=== PATIENT | female | born 1960 | race Caucasian/White ===

== ENCOUNTER 2019-03-12 09:10 | Day surgery (SDC) | payer BC ==
[2019-03-11 14:33] LABS: BASOPHILS % (AUTO) 0.3 % (0.0-5.0); EOSINOPHILS % (AUTO) 0.1 % (0.0-8.0); HEMATOCRIT 34.8 % (36-48); LYMPHOCYTES % (AUTO) 10.7 % (21.0-51.0); MEAN CORPUSCULAR HGB CONC 34.3 g/dL (32.0-36.0); MEAN CORPUSCULAR VOLUME 93.3 fL (79-99); MONOCYTES % (AUTO) 9.5 % (3.0-13.0); NEUTROPHILS % (AUTO) 79.4 % (40.0-77.0); RED BLOOD CELL COUNT(AUTO) 3.73 MIL/uL (4.00-5.50); RED CELL DISTRIBUTION WIDTH 12.4 % (11.0-15.5); WHITE BLOOD COUNT (AUTO) 10.6 K/uL (4.8-10.8)
[2019-03-11 14:35] VITALS: BP 148/74
[2019-03-11 14:45] LABS: CREATININE 0.9 mg/dL (0.5-1.5); POTASSIUM 4.7 mmol/L (3.5-5.1)
[2019-03-11 14:48] LABS: PROTHROMBIN TIME 10.5 SEC (9.6-11.6)
[2019-03-11 14:53] LABS: APPEARANCE,URINE Clear (CLEAR); BILIRUBIN,URINE Negative (NEGATIVE); COLOR,URINE Yellow (YELLOW); GLUCOSE, URINE (UA) Negative (NEGATIVE); KETONES,URINE Trace mg/dL (NEGATIVE); LEUKOCYTE ESTERASE ,URINE Negative (NEGATIVE); NITRATE,URINE Negative (NEGATIVE); OCCULT BLOOD,URINE Negative (NEGATIVE); PH,URINE 5.5 (5.0-8.0); PROTEIN,URINE Negative (NEGATIVE); UROBILINOGEN,URINE 0.2 mg/dL (0.2-1.0)
[2019-03-11 15:09] LABS: PLATELET COUNT (AUTO) 744 K/uL (130-400)
--- NOTE | 2019-03-11 15:10 | NUR ---
LABS PLT RESULTS REPORTED TO DR. MAHONEY, NO FURTHER ORDERS GIVEN AT THIS TIME.
[2019-03-11 15:12] LABS: BACTERIA,URINE Rare /HPF (None Seen); RBC,URINE 0-1 /HPF (0-1); SQUAMOUS EPITHELIAL CELL,UR 0-2 /HPF (0-2); WBC,URINE 0-1 /HPF (0-1)
[2019-03-11 15:28] LABS: PLATELET MORPHOLOGY COMMENT MARKED INCREASE
[~2019-03-12] VITALS: Ht 160 cm; Wt 44.3 kg
[2019-03-12] VITALS (15 sets, daily range): BP systolic 133–175; BP diastolic 68–86
[2019-03-12] MEDS ORDERED: IOHEXOL-350 50ML VIAL IV ONE (10:21)
[2019-03-12] MEDS ORDERED: GENTAMICIN 80 MG/NS 100 ML PB 100 ML IV ONE (10:23)
[2019-03-12] MEDS ORDERED: LACTATED RINGERS 1000ML 1,000 ML IV ONE (10:23)
[2019-03-12] MEDS ORDERED: MIDAZOLAM HCL 1 MG/ML 2ML VIAL ONE (10:31)
[2019-03-12] MEDS ORDERED: ONDANSETRON HCL 4 MG/2 ML VIAL ONE (10:31)
[2019-03-12] MEDS: CEFTRIAXONE SODIUM 1 GM ONE ×2 (10:32→10:45)
[2019-03-12] MEDS ORDERED: FENTANYL CITRATE PF 50 MCG/1 ML 2ML VIAL ONE (10:54)
[2019-03-12] MEDS ORDERED: EPHEDRINE SULFATE 50 MG/ML AMPULE ONE (11:12)
[2019-03-12] MEDS ORDERED: PROPOFOL 10 MG/ML 20ML VIAL IV ONE (11:34)
[2019-03-12] MEDS ORDERED: MEPERIDINE-PF 25 MG/ML SYG ONE (12:04)
--- NOTE | 2019-03-12 12:50 | NUR ---
ASSESSMENT RECEIVED PT FROM PACU STAFF. PT [id number]. PT DENIES ANY PAIN. FRIEND AT BEDSIDE.
--- NOTE | 2019-03-12 14:00 | NUR ---
DISCHARGE ORAL AND WRITTEN DISCHARGE INSTRUCTIONS GIVEN TO PT AND PTS FRIEND ALONG WITH PRESCRIPTIONS. NO OTHER QUESTIONS AT THIS TIME.
== END 2019-03-12 14:10 | disposition home or self-care (01) ==
LOC: DAH 09:10
PROVIDERS: ATTEND Urology
DX: N13.30 Unspecified hydronephrosis (principal); N28.9 Disorder of kidney and ureter, unspecified; N13.0 Hydronephrosis with ureteropelvic junction obstruction; Z88.0 Allergy status to penicillin; Z98.890 Other specified postprocedural states; Z82.49 Family history of ischemic heart disease and other diseases of the circulatory system; Z82.3 Family history of stroke
CPT/HCPCS: 36415; 52332; 52351; 71045; 74420; 80048; 81001; 85025; 85610; 87071; 87077; 87088; 87186; 87205; 88108; 88305; 93005; A4358; A4600; A4930; C1758; C1769; C2617; J0696; J1580; J2175; J2250; J2405; J2704; J3010; J3490; J7120 ×2; Q9967